=== PATIENT | female | born 1980 | race Caucasian/White ===

== ENCOUNTER 2016-10-16 18:02 | Emergency (ER) | payer BC ==
[2016-10-16 18:05] VITALS: BP 129/82
--- NOTE | 2016-10-16 19:47 | RAD ---
Indication: RIGHT foot pain with bruising around the fifth metatarsal post fall. Comparison: November 16, 2010 Technique: AP, lateral, and oblique views RIGHT foot. Report: Normal articular alignment. No cortical disruption or suspicious trabecular irregularity to suggest fracture. Small os peroneum accessory ossicles. No significant arthropathic change. Mild soft tissue swelling along the lateral aspect of the foot through the level of the proximal fifth metatarsal. IMPRESSION: Lateral soft tissue swelling. Negative for fracture or malalignment.
[2016-10-16] MEDS ORDERED: Ketorolac INJ* 60 MG/2 ML VIAL IM ONE (19:58)
--- NOTE | 2016-10-16 20:02 | ED ---
Lower Extremity - HPI Summary HPI Summary: 35 female presents with complaints of right ankle and foot pain after rolling her ankle yesterday 10/15/16. Patient states she was walking on uneven ground and rolled her ankle and has had pain since. Was able to bear weight on it yesterday with pain however this morning has been unable to bear weight due to pain. Admits to swelling and bruising. Denies hitting her head or any other pain /injuries. Took one aleve this morning with little to no relief. Has been icing and using daughters crutches. No PMHx. States she has some ROM of her ankle it mainly just hurts in the top and lateral side of her foot. Denies numbness/ tingling. - History of Current Complaint Chief Complaint: EDExtremityLower Stated Complaint: RT FOOT INJURY Time Seen by Provider: 10/16/16 18:37 Hx Obtained From: Patient Mechanism Of Injury: Twisted Onset of Pain: Immediate, Post Accident Onset/Duration: Days - yesterday Severity Initially: Mild Severity Currently: Moderate Pain Intensity: 5 Pain Scale Used: 0-10 Numeric Timing: Constant Location: Is Discrete @ - right foot/ankle Character Of Pain: Sharp, Aching, Stiffness Associated Signs And Symptoms: Positive: Swelling, Bruising Aggravating Factor(s): Ambulation, Movement, Weight Bearing Alleviating Factor(s): Rest, Elevation, Ice, Other - posiion Able to Bear Weight: No - was able however was not upon waking this morning due to pain PMH/Surg Hx/FS Hx/Imm Hx Endocrine/Hematology History: Denies: Hx Diabetes Cardiovascular History: Denies: Hx Hypertension Respiratory History: Denies: Hx Asthma - Surgical History Surgery Procedure, Year, and Place: none - Immunization History Immunizations Up to Date: Yes Infectious Disease History: No Infectious Disease History: Denies: Traveled Outside the [place] in Last 30 Days - Family History Known Family History: Positive: None - Social History Alcohol Use: Occasionally Substance Use Type: Reports: None Smoking Status (MU): Current Some Day Smoker Review of Systems Constitutional: Negative Cardiovascular: Negative Respiratory: Negative Positive: Arthralgia, Myalgia, Decreased ROM, Edema - right ankle/foot Positive: Bruising - right foot Neurological: Negative All Other Systems Reviewed And Are Negative: Yes Physical Exam Triage Information Reviewed: Yes Vital Signs On Initial Exam: Initial Vitals Temp Pulse Resp BP Pulse Ox 98.8 F 82 18 129/82 98 10/16/16 18:03 10/16/16 18:03 10/16/16 18:03 10/16/16 18:03 10/16/16 18:03 Vital Signs Reviewed: Yes Appearance: Positive: Well-Appearing, No Pain Distress, Well-Nourished Skin: Positive: Skin Color Reflects Adequate Perfusion, Dry, Other - ecchymosis and edema of right lateral and anterior foot, and ankle. Negative: Cold, Numb Head/Face: Positive: Normal Head/Face Inspection Eyes: Positive: Normal, Conjunctiva Clear ENT: Positive: Hearing grossly normal Neck: Positive: Supple, Nontender Respiratory/Lung Sounds: Positive: Clear to Auscultation, Breath Sounds Present. Negative: Rales, Rhonchi, Wheezes Cardiovascular: Positive: Normal, RRR, Pulses are Symmetrical in both Upper and Lower Extremities - 2+ left pedal, right 1+ difficult to palpate however able due to edema. cap refill < 2seconds, strength and sensation intact. Negative: Murmur, Rub Musculoskeletal: Positive: Limited @ - at right ankle, does have some flexion and extension, more pain with extension, Pain @ - right ankle/foot, Edema Right - foot/ankle, Other - no obvious deformity crepitus or step off noted. Negative : Interruption @ Neurological: Positive: Normal, Sensory/Motor Intact - sensation intact, Alert, Oriented to Person Place, Time, CN Intact II-III, Reflexes Intact, NV Bundle Intact Distally, Unable to Assess Gait - due to pain Psychiatric: Positive: Normal, Affect/Mood Appropriate AVPU Assessment: Alert Diagnostics - Vital Signs Vital Signs Temp Pulse Resp BP Pulse Ox 10/16/16 18:05 98.8 F 88 16 129/82 98 10/16/16 18:03 98.8 F 82 18 129/82 98 - Laboratory Lab Statement: Any lab studies that have been ordered have been reviewed, and results considered in the medical decision making process. - Radiology right foot/ankle Xray Interpretation: No Acute Changes - Lateral soft tissue swelling. Negative for fracture or malalignment. Radiology Interpretation Completed By: Radiologist Lower Extremity Course/Dx - Course Course Of Treatment: given toradol for pain and inflammation. ice applied. x- ray obtained and negative for fracture. patient was given rosio bandage and splint. crutches also give that fit appropriately. aware of worsening signs and symptoms. will treat for ankle sprain. RICE and continue advil/aleve starting tomorrow as needed. follow up PCP or ortho if needed. - Diagnoses Differential Diagnosis/HQI/PQRI: Positive: Contusion, Dislocation, Fracture ( Closed), Sprain, Strain Provider Diagnoses: Right ankle sprain, Right foot sprain Discharge - Discharge Plan Condition: Stable Disposition: HOME Patient Education Materials: Ankle Sprain (ED), Foot Sprain (ED) Referrals: Louisa Waldron NP [Primary Care Provider] - Walter Martino MD [Medical Doctor] - Additional Instructions: Take Advil or Aleve for pain and inflammation for the next couple of days to help with pain and inflammation. Continue resting and ice multiple times daily. Elevate your leg when laying or sitting to decrease swelling. Wear brace and use crutches for the next couple of days for extra support and to help with healing. Follow up with PCP or orthopedics. IF symptoms worsen or do not improve within the next 2 weeks please seek medical attention promptly.
== END 2016-10-16 20:25 | disposition home or self-care (01) ==
LOC: ED 18:02
DX: S93.401A Sprain of unspecified ligament of right ankle, initial encounter (principal); M79.1 Myalgia; Z72.0 Tobacco use; X50.9XXA Other and unspecified overexertion or strenuous movements or postures, initial encounter; Y93.9 Activity, unspecified; Y92.9 Unspecified place or not applicable
CPT/HCPCS: 96372; 99282

== ENCOUNTER 2017-07-30 12:11 | Emergency (ER) | payer BC ==
--- NOTE | 2017-07-30 13:21 | RAD ---
INDICATION: Renal injury COMPARISON: None TECHNIQUE: Noncontrast axial source images were acquired from the skull base to the vertex. FINDINGS: Ventricles/sulci: The ventricles and cisterns are normal in size and configuration for age. Brain parenchyma: There is no focal parenchymal finding, evidence of intracranial mass, or intracranial mass effect. Intracranial hemorrhage:None. Extra-axial spaces: There are no abnormal extra axial fluid collections or evidence of extra-axial mass. Calvarium: There is no calvarial fracture or other calvarial abnormality. Scalp: There is no evidence of scalp or extracalvarial soft tissue abnormality. Paranasal sinuses/mastoid: The paranasal sinuses and mastoid air cells are clear. Other: None. IMPRESSION: NO ACUTE INTRACRANIAL FINDINGS
[2017-07-30 13:57] VITALS: BP 131/74
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
== END 2017-07-30 13:51 | disposition home or self-care (01) ==
LOC: ED 12:11
DX: S00.93XA Contusion of unspecified part of head, initial encounter (principal); W04.XXXA Fall while being carried or supported by other persons, initial encounter; F17.200 Nicotine dependence, unspecified, uncomplicated; Y92.9 Unspecified place or not applicable
CPT/HCPCS: 70450; 99281